=== PATIENT | female | born 1945 | race Caucasian/White ===

== ENCOUNTER 2018-12-12 11:47 | Emergency (ER) | payer OTHER ==
[~2018-12-12] VITALS: Ht 152.4 cm; Wt 66.5 kg
[~2018-12-12 11:47] MED LIST: ASPIR 8181 M1 PO; ATORVASTATIN CA40 MG PO; DICLOFENAC SODI75 MG PO; DITROPAN XL10 M1 PO; ESTRADIOL 1 MG T1 M1 PO; FISH OIL 1,001000 M2 PO; LOPRESSOR25 PO; NITROGLYCERIN0.4 MG SUBLING; PLAVIX 75 MG TA75 M1 PO; PROTONIX40 M1 PO; TYLENOL325 MG PO
[2018-12-12 12:54] LABS: ABSOLUTE BASOPHILS 0.1 thou/uL (0.0-0.2); ABSOLUTE EOSINOPHILS 0.1 thou/uL (0.0-0.7); ABSOLUTE LYMPHOCYTES 1.9 thou/uL (0.8-5.3); ABSOLUTE MONOCYTES 0.5 thou/uL (0.0-1.2); ABSOLUTE NEUTROPHILS 7.6 thou/uL (1.6-8.1); BASOPHILS 0.7 %; EOSINOPHILS 0.7 %; HEMATOCRIT 38.3 % (37.0-47.0); HEMOGLOBIN 12.7 gm/dL (12.0-15.0); LYMPHOCYTES 18.7 %; MCH 30.5 pg (26.0-34.0); MCHC 33.3 g/dL (28.0-37.0); MCV 91.6 fL (80.0-100.0); MONOCYTES 4.9 %; MPV 8.7 fl. (7.2-11.1); NUCLEATED RBCS 0 /100WBC; PLATELET COUNT* 313 thou/uL (150-400); RBC 4.18 mil/uL (4.20-5.00); RDW-CV 13.3 % (10.5-14.5); WBC 10.1 thou/uL (4.0-11.0)
[2018-12-12 13:03] LABS: INR 0.9; PROTIME 9.6 Seconds (9.20-11.50)
[2018-12-12 13:15] LABS: ANION GAP 15 mmol/L (7-16); BUN 22 mg/dL (7-18); CALCIUM 8.8 mg/dL (8.5-10.1); CHLORIDE 103 mmol/L (98-107); CO2 24 mmol/L (21-32); CREATININE 1.1 mg/dL (0.6-1.3); GLUCOSE 100 mg/dL (70-99); POTASSIUM 4.3 mmol/L (3.5-5.1); SODIUM 142 mmol/L (136-145)
[2018-12-12 13:20] LABS: ALBUMIN 3.6 g/dL (3.4-5.0); ALKALINE PHOSPHATASE 96 U/L (46-116); LIPASE 139 U/L (73-393); NT-PRO BRAIN NAT PEPTIDE 85 pg/mL (<300); SGOT 24 U/L (15-37); SGPT 31 U/L (30-65); TOTAL BILIRUBIN 0.5 mg/dL (<0.1-1.0); TOTAL PROTEIN 6.8 g/dL (6.4-8.2); TROPONIN-I LEVEL <0.06 ng/mL (<0.06)
[2018-12-12 14:33] VITALS: BP 124/67
--- NOTE | 2018-12-13 16:54 | EKG ---
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1945 Requested By: Slick Kelly Order Number: [id number] MD: Zelalem Antony Measurements Intervals [place] Rate: 64 P: 61 CT: 187 QRS: 29 QRSD: 87 T: 18 QT: 428 QTc: 442 Interpretive Statements Sinus rhythm Low voltage, precordial leads Anteroseptal infarct, age indeterminate Compared to ECG 08/16/2014 09:02:21 Low QRS voltage now present Myocardial infarct finding now present Electronically Signed On 12-13-2018 16:54:47 CDT by Zelalem Antony [email or web address] <ELECTRONICALLY SIGNED> By: Zelalem Antony MD, FAC 12/13/18 1654 1152 1152 Zelalem Antony MD, [facility] /EPI
== END 2018-12-12 14:35 | disposition home or self-care (01) ==
LOC: M.ERS 11:47
PROVIDERS: Emergency Medicine Emergency Medical Services
DX: R55 Syncope and collapse (principal); I25.2 Old myocardial infarction; E78.5 Hyperlipidemia, unspecified; Z90.710 Acquired absence of both cervix and uterus; Z95.2 Presence of prosthetic heart valve